=== PATIENT | female | born 1945 | race Asian ===

== ENCOUNTER 2018-02-12 12:50 | Emergency (ER) | payer MEDICARE, OTHER | END 2018-02-12 13:32 | disposition home or self-care (01) | LOC: FTE 12:50 | DX: R05 Cough (principal); I10 Essential (primary) hypertension; J45.901 Unspecified asthma with (acute) exacerbation | CPT/HCPCS: 99284 ==

== ENCOUNTER 2018-04-27 09:06 | Emergency (ER) | payer MEDICARE, OTHER | END 2018-04-27 10:48 | disposition home or self-care (01) | LOC: FTE 09:06 | DX: R05 Cough (principal); J45.909 Unspecified asthma, uncomplicated; I10 Essential (primary) hypertension | CPT/HCPCS: 71045; 99283-25 ==